=== PATIENT | female | born 1955 | race Caucasian/White ===

== ENCOUNTER 2020-10-09 11:25 | Observation (INO) | payer MEDICARE ==
[2020-10-09 12:01] LABS: ABSOLUTE EOSINOPHILS # (AUTO) 0.3 10^3/uL (0.0-0.6); ABSOLUTE MONOCYTES (AUTO) 0.8 10^3/uL (0.1-1.4); BASOPHILS % (AUTO) 0.4 % (0-2); EOSINOPHILS % (AUTO) 3.3 % (0-6); HEMATOCRIT 39.7 % (36.0-47.0); HEMOGLOBIN 13.6 g/dL (12.0-15.5); LYMPHOCYTES % (AUTO) 24.7 % (13-45); MEAN CORPUSCULAR HEMOGLOBIN 30.4 pg (27.0-33.4); MEAN CORPUSCULAR HGB CONC 34.1 g/dL (32.0-36.0); MEAN CORPUSCULAR VOLUME 89 fl (80-97); MONOCYTES % (AUTO) 9.8 % (3-13); PLATELET COUNT 164 10^3/uL (150-450); RED BLOOD COUNT 4.45 10^6/uL (3.72-5.28); RED CELL DISTRIBUTION WIDTH 14.1 % (11.5-14.0); SEGMENTED NEUTROPHILS % (AUTO) 61.8 % (42-78); TOTAL CELLS COUNTED % (AUTO) 100 %; WHITE BLOOD COUNT 8.1 10^3/uL (4.0-10.5)
[2020-10-09] MEDS ORDERED: METHYLPREDNISOLONE INJ 125 MG/2 ML SDV IV ONE (12:02)
--- NOTE | 2020-10-09 12:03 | ER Document Report ---
ED Cardiac - General Chief Complaint: Chest Pain Stated Complaint: CHEST PAIN SOB Time Seen by Provider: 10/09/20 11:33 Notes: Patient is a 65-year-old female with a history of a pacemaker, [place], hypertension who presents emergency department with a chief complaint of chest pain that started around 11:00 this morning. Patient states that her pain is a sharp, stabbing pain. She also states that it radiates down her left arm. Patient also states that she was short of breath for the past 2 days. Reports increased urination. - Related Data Allergies/Adverse Reactions: No Known Allergies Allergy (Verified 10/09/20 12:02) Past Medical History - General Information source: Patient - Social History Smoking Status: Current Every Day Smoker Family History: Reviewed & Not Pertinent Review of Systems - Review of Systems Notes: REVIEW OF SYSTEMS: CONSTITUTIONAL : Denies recent illness. Denies recent unintentional weight loss. Denies fever, chills, or sweats. EENT: Denies eye, ear, throat, or mouth pain, discharge, or symptoms. Denies nasal or sinus congestion. CARDIOVASCULAR: See HPI. RESPIRATORY: See HPI. GASTROINTESTINAL: Denies nausea, vomiting, and diarrhea. Denies abdominal pain. Denies constipation. GENITOURINARY: Denies difficulty urinating, burning, blood in urine, urgency or frequency. MUSCULOSKELETAL: Denies neck and back pain. Denies joint pain or swelling. SKIN: Denies rash, itchiness, or lesions HEMATOLOGIC : Denies easy bruising or bleeding. LYMPHATIC: Denies swollen, painful, enlarged glands. NEUROLOGICAL: Denies no numbness or tingling denies weakness. Denies headache. Denies altered mental status. Denies alteration in speech. PSYCHIATRIC: Denies stress, anxiety, alteration in sleep patterns, or depression. All other systems reviewed and negative. Physical Exam - Vital signs Vitals: Pulse Ox 97 10/09/20 11:32 - Notes Notes: PHYSICAL EXAMINATION: GENERAL: Appears well, healthy, well-nourished, no acute distress. HEAD: Normocephalic, atraumatic. EYES: PERRL, conjunctiva normal, all extraocular movements intact, sclera nonicteric ENT: Moist mucous membranes. NECK: Supple, no noticeable swelling, redness, rash. Normal range of motion. LUNGS: Expiratory wheezes noted throughout all lung lopez. CARDIOVASCULAR: S1-S2, regular rate, regular rhythm. Radial pulses 2+, normal. ABDOMEN: Normoactive bowel sounds. Soft, nontender, no guarding, no rebound tenderness, and no masses palpated. EXTREMITIES: Normal strength and range of motion, no pitting or edema. No cyanosis. NEUROLOGICAL: Moves all extremities upon command. Strength 5/5 in all extremities. PSYCH: Normal mood, normal affect. SKIN: Warm, dry. No rash, lesions, ulcerations noted. Normal skin turgor. Course - Re-evaluation Re-evalutation: 10/09/20 Hematology is unremarkable. Chemistries show potassium of 3.5. Calcium 7.8, but when corrected is normal. Initial troponin is indeterminate at 0.040. BNP is 11,800, consistent with a CHF exacerbation. Chest x-ray is normal. I called Dr. [address] and the patient will be admitted for observation on the telemetry unit. - Vital Signs Vital signs: Temp Pulse Resp BP Pulse Ox 98 F 29 H 186/66 H 96 10/09/20 11:54 10/09/20 16:13 10/09/20 17:01 10/09/20 17:01 - Laboratory Result Diagrams: 10/09/20 11:36 10/09/20 11:36 Laboratory results interpreted by me: 10/09/20 10/09/20 10/09/20 11:36 11:36 11:36 RDW 14.1 H Potassium 3.5 L BUN 6 L Creatinine 0.51 L Calcium 7.8 L NT-Pro-B Natriuret Pep 21776 H Total Protein 5.9 L Albumin 3.3 L - EKG Interpretation by Me Additional EKG results interpreted by me: 10/09/20 12:02 Ventricularly paced rhythm with a rate of 74. KS 124 QRS 152; QT 460; QTc 511. Discharge - Discharge Clinical Impression: Chest pain Qualifiers: Chest pain type: unspecified Qualified Code(s): R07.9 - Chest pain, unspecified Condition: Stable Disposition: ADMITTED OBSERVATION Admitting Provider: Maximiliano (Hospitalist) Unit Admitted: Telemetry
[2020-10-09 12:15] LABS: ALBUMIN 3.3 g/dL (3.5-5.0); ALKALINE PHOSPHATASE 86 U/L (38-126); ANION GAP 6 (5-19); ASPARTATE AMINO TRANSFERASE 22 U/L (14-36); BILIRUBIN,DIRECT 0.1 mg/dL (0.0-0.4); BILIRUBIN,TOTAL 0.8 mg/dL (0.2-1.3); BLOOD UREA NITROGEN 6 mg/dL (7-20); CALCIUM 7.8 mg/dL (8.4-10.2); CARBON DIOXIDE 28 mmol/L (22-30); CHLORIDE 105 mmol/L (98-107); CREATINE KINASE 100 U/L (30-135); GLUCOSE 87 mg/dL (75-110); POTASSIUM 3.5 mmol/L (3.6-5.0); TOTAL PROTEIN 5.9 g/dL (6.3-8.2)
--- NOTE | 2020-10-09 12:19 | RADIOLOGY REPORT (SQ) ---
EXAM DESCRIPTION: CHEST SINGLE VIEW IMAGES COMPLETED DATE/TIME: 10/09/2020 12:04 pm REASON FOR STUDY: cp COMPARISON: None. EXAM PARAMETERS: NUMBER OF VIEWS: One view. TECHNIQUE: Single frontal radiographic view of the chest acquired. RADIATION DOSE: NA LIMITATIONS: None. FINDINGS: LUNGS AND PLEURA: No opacities, masses or pneumothorax. No pleural effusion. MEDIASTINUM AND HILAR STRUCTURES: No masses. Contour normal. HEART AND VASCULAR STRUCTURES: Heart normal in size. Normal vasculature. BONES: No acute findings. HARDWARE: Pacemaker/defibrillator. OTHER: No other significant finding. IMPRESSION: NO ACUTE RADIOGRAPHIC FINDING IN THE CHEST. TECHNICAL DOCUMENTATION: JOB ID: [id number] 2010 [employer]- All Rights Reserved Reading location - IP/workstation name: [email or web address]
[2020-10-09 12:27] LABS: CREATINE KINASE MB 3.29 ng/mL (<4.55)
[2020-10-09 12:37] LABS: TROPONIN I 0.04 ng/mL
[2020-10-09] MEDS ORDERED: NITROGLYCERIN 0.4 MG/TAB 25 TAB/BOTTLE SL PRN (16:18)
[2020-10-09] MEDS ORDERED: ACETAMINOPHEN 325 MG TABLET PO PRN (16:18)
[2020-10-09] MEDS ORDERED: ONDANSETRON HCL INJ/PF 4 MG/2 ML SDV IV PRN (16:18)
[2020-10-09] MEDS ORDERED: MAG HYDROX/AL HYDROX/SIMETH SUSP 30 ML UDCUP PO PRN (16:18)
--- NOTE | 2020-10-09 16:39 | PDOC H&P ---
History of Present Illness Admission Date/PCP: 10/09/20 16:30 Patient complains of: chest pain, sob, left arm pain History of Present Illness: BRADLY MATHEW is a 65 year old female with history of COPD, CHF s/p ICD, IA s/p PCI with stents 5years ago, hypertension, who presents to the hospital with complaints of shortness of breath for the past 3 days as well as chest pain which started today. Regarding patient's shortness of breath, she describes this as progressive associated with orthopnea which has been a little more chronic. She denies any PND. Denies any fever chills and she is not having any much coughing. Her chest pain just started today and she describes it as a left-sided sharp chest pain which will cause for several seconds not up to a mi nute. Associated with pain in the upper left arm. No clear exacerbating or alleviating factors. States that the pain does not feel like it is the muscle was feels like it is coming from within. Denies any heavy lifting or physical activity involving that arm. 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 She has not had a stress test or left heart cath in the past few years. She states her stenting was done up at [place]. In the ER, patient was given steroids after being noted to be wheezing. SPO2 is adequate. Hospitalist service consulted for chest pain rule out as well as concern for COPD and CHF. Past Medical History Cardiac Medical History: Reports: Congestive Heart Failure, Myocardial Infarction, Hyperlipidema, Hypertension Pulmonary Medical History: Reports: Chronic Obstructive Pulmonary Disease (COPD) Past Surgical History Past Surgical History: Reports: Cardiac Catheterization Social History Smoking Status: Current Every Day Smoker Frequency of Alcohol Use: Rare Hx Recreational Drug Use: No - Advance Directive Resuscitation Status: Full Code Family History Family History: Hypertension, Other - Heart disease Parental Family History Reviewed: Yes Children Family History Reviewed: Yes Sibling(s) Family History Reviewed.: Yes Medication/Allergy Allergies/Adverse Reactions: No Known Allergies Allergy (Verified 10/09/20 12:02) Review of Systems Constitutional: ABSENT: fatigue, fever(s) Eyes: ABSENT: visual disturbances Ears: ABSENT: hearing changes Nose, Mouth, and Throat: ABSENT: headache(s) Cardiovascular: PRESENT: chest pain, orthropnea Respiratory: PRESENT: dyspnea. ABSENT: sputum Gastrointestinal: ABSENT: abdominal pain, nausea, vomiting Genitourinary: ABSENT: dysuria Musculoskeletal: PRESENT: other - left arm pain. ABSENT: back pain, joint swelling Neurological: ABSENT: confusion, convulsions, dizziness Psychiatric: ABSENT: anxiety Endocrine: PRESENT: polyuria - Occasionally Hematologic/Lymphatic: ABSENT: easy bleeding Allergic/Immunologic: ABSENT: seasonal rhinorrhea Physical Exam Vital Signs: Temp Pulse Resp BP Pulse Ox 98 F 29 H 133/86 H 95 10/09/20 11:54 10/09/20 16:13 10/09/20 16:14 10/09/20 16:00 Intake & Output 10/08/20 10/09/20 10/10/20 06:59 06:59 06:59 Weight 64.864 kg General appearance: PRESENT: no acute distress, cooperative Mouth exam: PRESENT: neck supple Neck exam: ABSENT: JVD Respiratory exam: PRESENT: crackles - Very minimal crackles in patient's right lower lung field., symmetrical, unlabored, wheezes - Prominent and expiratory wheezing bilateral. ABSENT: accessory muscle use, tachypnea Cardiovascular exam: PRESENT: RRR, +S1, +S2. ABSENT: tachycardia GI/Abdominal exam: PRESENT: soft. ABSENT: distended, rebound, rigid, tenderness Extremities exam: ABSENT: pedal edema Musculoskeletal exam: PRESENT: ambulatory, tenderness - Tenderness on palpation over the left upper arm also tender in the left shoulder. However patient states he feels like a different type pain. Pain elicited on arm extension. Neurological exam: PRESENT: alert, awake, oriented to person, oriented to place, oriented to time, oriented to situation Psychiatric exam: ABSENT: agitated, anxious Focused psych exam: ABSENT: pressured speech Skin exam: PRESENT: rash - Left lower extremity Results Laboratory Results: 10/09/20 11:36 10/09/20 11:36 10/09/20 10/09/20 11:36 11:36 WBC 8.1 RBC 4.45 Hgb 13.6 Hct 39.7 MCV 89 MCH 30.4 MCHC 34.1 RDW 14.1 H Plt Count 164 Seg Neutrophils % 61.8 Sodium 139.1 Potassium 3.5 L Chloride 105 Carbon Dioxide 28 Anion Gap 6 BUN 6 L Creatinine 0.51 L Est GFR ( Amer) > 60 Glucose 87 Calcium 7.8 L Total Bilirubin 0.8 AST 22 Alkaline Phosphatase 86 Total Protein 5.9 L Albumin 3.3 L 10/09/20 10/09/20 10/09/20 11:36 11:36 11:36 Creatine Kinase 100 CK-MB (CK-2) 3.29 Troponin I 0.040 NT-Pro-B Natriuret Pep 36645 H 10/09/20 14:45 Creatine Kinase CK-MB (CK-2) Troponin I 0.035 NT-Pro-B Natriuret Pep Impressions: Chest X-Ray 10/09/20 11:33 IMPRESSION: NO ACUTE RADIOGRAPHIC FINDING IN THE CHEST. Assessment and Plan - Diagnosis (1) Chest pain Qualifiers: Chest pain type: unspecified Qualified Code(s): R07.9 - Chest pain, unspecified Is this a current diagnosis for this admission?: Yes Plan: Her chest pain is very atypical for CAD lasting just seconds. However she does have confirmed history of CAD with stents and has lost follow-up with her blacksmith supervisor. She did also states that nitro helped with the chest pain earlier on today. Troponin is mildly elevated at 0.04--0.035 We will get another troponin level later today. EKG shows V paced rhythm Monitor on telemetry Cardiology consulted (2) COPD exacerbation Is this a current diagnosis for this admission?: Yes Plan: Notable x-ray wheezing bilaterally on exam. Treat with albuterol nebulizer every 6 hours, steroids, budesonide nebs. Chest x-ray shows no evidence of pneumonia (3) Left upper arm pain Is this a current diagnosis for this admission?: Yes Plan: We will try some Lidoderm. Possibly could be musculoskeletal. We will also rule out any blood clot with a left upper extremity Doppler. (4) Chronic CHF Qualifiers: Heart failure type: unspecified Qualified Code(s): I50.9 - Heart failure, unspecified Is this a current diagnosis for this admission?: Yes Plan: She has chronic orthopnea and BNP elevation of 11,000. Chest x-ray actually does not show any pulmonary edema increased vascular congestion. She takes Lasix 40 mg daily at home. I will try giving her some IV 60 mg Lasix and see if that helps improve her breathing. Strict I's and O's. 1500 cc fluid restriction. EF is unknown but patient does have an ICD which makes me suspect systolic heart failure. Will check echo. May need to be converted to Toprol-XL if determined to be systolic CHF. (5) Hypertension Is this a current diagnosis for this admission?: Yes Plan: Hypertensive urgency. Systolic BP 186 though was much better on initial vitals. Continue patient's Imdur, lisinopril and amlodipine. (6) CAD (coronary artery disease) Qualifiers: Coronary Disease-Associated Artery/Lesion type: [place] artery [place] vs. transplanted heart: [place] heart Associated angina: angina presence unspecified Qualified Code(s): I25.10 - Atherosclerotic heart disease of [place] coronary artery without angina pectoris Is this a current diagnosis for this admission?: Yes Plan: Continue baby aspirin and beta-fermín. Should be on a statin. (7) Advance care planning Is this a current diagnosis for this admission?: Yes Plan: Discussed patient's CODE STATUS with her and family member who was at bedside. Patient wants to be full code. Patient also okay with intubation in the absence of cardiac arrest. Patient is okay with cardioversion/defibrillation as deemed necessary for arrhythmias. Patient wants full treatment and open to all interventions. 18 minutes spent on this conversation - Time Time Spent with patient: 35 or more minutes Anticipated Discharge Disposition: Home, Self Care Anticipated Discharge Timeframe: within 36 hours
[2020-10-09] MEDS ORDERED: NICOTINE 14 MG/24 HR PATCH.TD24 TD PRN (17:00)
[2020-10-09] MEDS ORDERED: POTASSIUM CHLORIDE 10 MEQ TABLET.ER PO ONE (17:00)
[2020-10-09] MEDS ORDERED: FUROSEMIDE INJ/PF 40 MG/4 ML SDV IV ONE (17:00)
[2020-10-09] MEDS ORDERED: LIDOCAINE 5% (700 MG) TRANSDERMAL ADH..PATCH TP ONE (17:30)
[2020-10-09] MEDS ORDERED: ISOSORBIDE MONONITRATE 30 MG TAB.ER.24H PO ONE (18:30)
[2020-10-09] MEDS ORDERED: LISINOPRIL 10 MG TABLET PO ONE (18:30)
[2020-10-09] MEDS: MELOXICAM 7.5 MG TABLET PO SCH (18:36)
--- NOTE | 2020-10-09 19:01 | EKG REPORT ---
SEVERITY:- ABNORMAL ECG - ATRIAL-SENSED VENTRICULAR-PACED COMPLEXES PROBABLE LEFT ATRIAL ABNORMALITY LEFT BUNDLE BRANCH BLOCK : Confirmed by: Sonja Drew MD 09-Oct-2020 19:00:21
[2020-10-09] MEDS: BUDESONIDE NEB 0.25 MG/2 ML AMPUL NEB SCH (20:19)
[2020-10-09] MEDS: ALBUTEROL SULFATE 0.083% NEB 2.5 MG/3 ML AMPUL NEB SCH (20:19)
--- NOTE | 2020-10-09 20:43 | RADIOLOGY REPORT (SQ) ---
US UPPER EXTREMITY VEINS HISTORY: Arm pain and swelling. COMPARISON: None. TECHNIQUE: Grayscale, color Doppler, and spectral Doppler images of the left upper extremity were performed. FINDINGS: The internal jugular, subclavian, axillary, brachial, basilic, and cephalic veins are patent and compressible. Normal color Doppler blood flow and augmentation in the aforementioned veins. The distal veins are also patent. IMPRESSION: No DVT in the left upper extremity.
[2020-10-09] MEDS: METOPROLOL TARTRATE 25 MG TABLET PO SCH (22:56)
[2020-10-10] MEDS: ALBUTEROL SULFATE 0.083% NEB 2.5 MG/3 ML AMPUL NEB SCH ×3 (03:00→13:34)
[2020-10-10 06:02] LABS: ANION GAP 10 (5-19); BLOOD UREA NITROGEN 15 mg/dL (7-20); CALCIUM 9.4 mg/dL (8.4-10.2); CARBON DIOXIDE 26 mmol/L (22-30); CHLORIDE 102 mmol/L (98-107); GLUCOSE 155 mg/dL (75-110)
[2020-10-10 06:04] LABS: POTASSIUM 4.7 mmol/L (3.6-5.0)
--- NOTE | 2020-10-10 07:49 | PDOC CONSULTATION ---
Consultation Consult Date: 10/10/20 Attending physician:: SHA DUBOSE Provider Consulted: PAOLA SANTANA Consult reason:: Chest pain History of Present Illness Admission Date/PCP: 10/09/20 16:30 History of Present Illness: BRADLY MATHEW is a 65 year old female with history of coronary artery disease status post 6 myocardial infarctions per her report, status post PCI at [facility] approximately 5 years ago, heart failure with reduced ejection fraction status post ICD/pacemaker implantation, hypertension, hyperlipidemia, COPD, currently smoking who is consulted to our service for evaluation of chest pain. The patient states that she had been having increased shortness of breath several days prior to developing chest pain yesterday between 1000 and 1100. She describes the pain as very sharp, localized to the left side of the chest, lasting just for a few seconds at a time, with spontaneous resolution, with several recurrences throughout the day, with radiation to the left shoulder, nonpleuritic, nonreproducible and not associated with palpitations, syncope or presyncope. The patient also denies PND, orthopnea and lower extremity edema. She states that during her heart failure exacerbations she does not develop lower extremity pitting edema but generalized swelling particularly of the hands. Her telemetry shows sinus rhythm with ventricular pacing. Unfortunately I do not have any her old cardiovascular records. Of note, upon presentation to the emergency room her systolic pressure was very elevated at 183 mmHg. Physical exam on 10/10/2020: GENERAL: Pleasant and conversational. Oriented x3 with normal mood. Not in acute distress. Well groomed and well developed. HEENT: Normocephalic, atraumatic. Pupils equal. Sclerae anicteric. Oropharynx moist. NECK: No JVD. No carotid bruits. LUNGS: Diffuse, severe, inspiratory and expiratory wheezing bilaterally. Normal respiratory effort without the use of accessory muscles or intercostal retractions. CARDIOVASCULAR: Regular rate and rhythm, normal S1 and S2 without murmurs, rubs, or gallops. PMI not displaced. ABDOMEN: No masses or tenderness to palpation. No bruit. No splenomegaly or hepatomegaly. No abdominal aorta bruit noted. EXTREMITIES: No edema, no cyanosis, no clubbing. +2 pulses femoral and pedal pulses bilaterally. SKIN: No lesions or rashes. MUSCULOSKELETAL: No chest tenderness to palpation. NEUROLOGIC: Nonfocal. No gross sensory or motor deficits bilateral upper or lower extremities. Past Medical History Cardiac Medical History: Reports: Congestive Heart Failure, Myocardial Infarction, Hyperlipidema, Hypertension Pulmonary Medical History: Reports: Chronic Obstructive Pulmonary Disease (COPD) Psychiatric Medical History: Denies: Depression Past Surgical History Past Surgical History: Reports: Cardiac Catheterization Social History Smoking Status: Current Every Day Smoker Frequency of Alcohol Use: Rare Hx Recreational Drug Use: No - Advance Directive Resuscitation Status: Full Code Family History Family History: Reviewed & Not Pertinent Parental Family History Reviewed: Yes Children Family History Reviewed: Yes Sibling(s) Family History Reviewed.: Yes Medication/Allergy Allergies/Adverse Reactions: No Known Allergies Allergy (Verified 10/09/20 12:02) Physical Exam Vital Signs: Temp Pulse Resp BP Pulse Ox 97.7 F 75 18 113/53 L 95 10/10/20 04:00 10/10/20 04:00 10/10/20 04:00 10/10/20 04:00 10/10/20 04:00 Intake & Output 10/08/20 10/09/20 10/10/20 06:59 06:59 06:59 Intake Total 200 Balance 200 Weight 63.1 kg Results Laboratory Results: 10/09/20 11:36 10/10/20 04:40 10/09/20 10/09/20 10/10/20 11:36 11:36 04:40 WBC 8.1 RBC 4.45 Hgb 13.6 Hct 39.7 MCV 89 MCH 30.4 MCHC 34.1 RDW 14.1 H Plt Count 164 Seg Neutrophils % 61.8 Sodium 139.1 137.9 Potassium 3.5 L 4.7 D Chloride 105 102 Carbon Dioxide 28 26 Anion Gap 6 10 BUN 6 L 15 Creatinine 0.51 L 0.87 Est GFR ( Amer) > 60 > 60 Glucose 87 155 H Calcium 7.8 L 9.4 Magnesium 2.1 Total Bilirubin 0.8 AST 22 Alkaline Phosphatase 86 Total Protein 5.9 L Albumin 3.3 L 10/09/20 10/09/20 10/09/20 11:36 11:36 11:36 Creatine Kinase 100 CK-MB (CK-2) 3.29 Troponin I 0.040 NT-Pro-B Natriuret Pep [id number] H 10/09/20 10/09/20 14:45 21:16 Creatine Kinase CK-MB (CK-2) Troponin I 0.035 0.021 NT-Pro-B Natriuret Pep Impressions: Venous Doppler Study 10/09/20 00:00 IMPRESSION: No DVT in the left upper extremity. Chest X-Ray 10/09/20 11:33 IMPRESSION: NO ACUTE RADIOGRAPHIC FINDING IN THE CHEST. 10/09/20 11:36 10/10/20 04:40 MCV 89 fl (80-97) 10/09/20 11:36 MCH 30.4 pg (27.0-33.4) 10/09/20 11:36 MCHC 34.1 g/dL (32.0-36.0) 10/09/20 11:36 RDW 14.1 % (11.5-14.0) H 10/09/20 11:36 Seg Neutrophils % 61.8 % (42-78) 10/09/20 11:36 Chloride 102 mmol/L (98-107) 10/10/20 04:40 Carbon Dioxide 26 mmol/L (22-30) 10/10/20 04:40 Anion Gap 10 (5-19) 10/10/20 04:40 Est GFR ( Amer) > 60 (>60) 10/10/20 04:40 Glucose 155 mg/dL (75-110) H 10/10/20 04:40 Calcium 9.4 mg/dL (8.4-10.2) 10/10/20 04:40 Magnesium 2.1 mg/dL (1.6-2.3) 10/10/20 04:40 Total Bilirubin 0.8 mg/dL (0.2-1.3) 10/09/20 11:36 AST 22 U/L (14-36) 10/09/20 11:36 Alkaline Phosphatase 86 U/L (38-126) 10/09/20 11:36 Total Protein 5.9 g/dL (6.3-8.2) L 10/09/20 11:36 Albumin 3.3 g/dL (3.5-5.0) L 10/09/20 11:36 10/09/20 10/09/20 10/09/20 11:36 11:36 11:36 Creatine Kinase 100 CK-MB (CK-2) 3.29 Troponin I 0.040 NT-Pro-B Natriuret Pep [id number] H 10/09/20 10/09/20 14:45 21:16 Creatine Kinase CK-MB (CK-2) Troponin I 0.035 0.021 NT-Pro-B Natriuret Pep Current Medication List Generic Name Dose Route Start Last Admin Trade Name Freq PRN Reason Stop Dose Admin Acetaminophen 975 mg 10/09/20 16:18 10/10/20 05:12 Acetaminophen 325 Mg Tablet PO 11/08/20 16:17 975 mg Q6HP PRN Administration FOR PAIN Al Hydrox/Mg Hydrox/Simethicone 30 ml 10/09/20 16:18 Mag Hydrox/Al Hydrox/Simeth Susp 30 Ml Udcup PO 11/08/20 16:17 Q4HP PRN HEARTBURN Albuterol 2.5 mg 10/09/20 20:00 10/10/20 03:00 Albuterol Sulfate 0.083% Neb 2.5 Mg/3 Ml Ampul NEB 11/08/20 19:59 2.5 mg RTQ6 MARLIN Administration Amlodipine Besylate 5 mg 10/10/20 10:00 Amlodipine Besylate 5 Mg Tablet PO 11/09/20 09:59 DAILY AMRLIN Aspirin 81 mg 10/10/20 10:00 Aspirin 81 Mg Tablet, Ent Coated PO 11/09/20 09:59 DAILY MARLIN Budesonide 0.25 mg 10/09/20 20:00 10/09/20 20:19 Budesonide Neb 0.25 Mg/2 Ml Ampul NEB 11/08/20 19:59 0.25 mg RTQ12 MARLIN Administration Enoxaparin Sodium 40 mg 10/10/20 10:00 Enoxaparin Sodium Inj 40 Mg/0.4 Ml Disp.Syrin SUBCUT 11/09/20 09:59 DAILY MARLIN Furosemide 60 mg 10/10/20 10:00 Furosemide Inj/Pf 40 Mg/4 Ml Sdv IV 11/09/20 09:59 DAILY MARLIN Isosorbide Mononitrate 30 mg 10/10/20 10:00 Isosorbide Mononitrate 30 Mg Tab.Er.24h PO 11/09/20 09:59 DAILY MARLIN Lidocaine 1 patch 10/10/20 10:00 Lidocaine 5% (700 Mg) Transdermal Adh..Patch TP 11/09/20 09:59 DAILY MARLIN Lisinopril 40 mg 10/10/20 10:00 Lisinopril 10 Mg Tablet PO 11/09/20 09:59 DAILY MARLIN Meloxicam 7.5 mg 10/09/20 18:00 10/09/20 18:36 Meloxicam 7.5 Mg Tablet PO 11/08/20 17:59 7.5 mg BIDPCBS MARLIN Administration Metoprolol Tartrate 12.5 mg 10/09/20 22:00 10/09/20 22:56 Metoprolol Tartrate 25 Mg Tablet PO 11/08/20 21:59 12.5 mg Q12 MARLIN Administration Nicotine 1 each 10/09/20 17:00 Nicotine 14 Mg/24 Hr Patch.Td24 TD 11/08/20 16:59 DAILYP PRN WITHDRAWAL SYMPTOMS Nitroglycerin 1 tab 10/09/20 16:18 Nitroglycerin 0.4 Mg/Tab 25 Tab/Bottle SL 11/08/20 16:17 Q5MP PRN FOR CHEST PAIN Ondansetron HCl 4 mg 10/09/20 16:18 Ondansetron Hcl Inj/Pf 4 Mg/2 Ml Sdv IV 11/08/20 16:17 Q6HP PRN FOR NAUSEA/VOMITING Potassium Chloride 20 meq 10/10/20 10:00 Potassium Chloride 10 Meq Tablet.Er PO 11/09/20 09:59 DAILY MARLIN Prednisone 40 mg 10/10/20 10:00 Prednisone 20 Mg Tablet PO 11/09/20 09:59 DAILY MARLIN Sodium Chloride 2.5 ml 10/09/20 22:00 10/10/20 05:12 Normal Saline Flush 2.5 Ml Disp.Syrin IV 11/08/20 21:59 2.5 ml Q8 MARLIN Administration Discontinued Medications Generic Name Dose Route Start Last Admin Trade Name Freq PRN Reason Stop Dose Admin Furosemide 60 mg 10/09/20 17:00 10/09/20 16:53 Furosemide Inj/Pf 40 Mg/4 Ml Sdv IV 10/09/20 17:01 60 mg NOW ONE Administration Isosorbide Mononitrate 30 mg 10/09/20 18:30 10/09/20 18:36 Isosorbide Mononitrate 30 Mg Tab.Er.24h PO 10/09/20 18:31 30 mg NOW ONE Administration Lidocaine 1 patch 10/09/20 17:30 10/09/20 16:54 Lidocaine 5% (700 Mg) Transdermal Adh..Patch TP 11/19/20 17:31 1 patch NOW ONE Administration Lisinopril 40 mg 10/09/20 18:30 10/09/20 18:35 Lisinopril 10 Mg Tablet PO 10/09/20 18:31 40 mg NOW ONE Administration Methylprednisolone Sodium Succinate 125 mg 10/09/20 12:02 10/09/20 12:34 Methylprednisolone Inj 125 Mg/2 Ml Sdv IV 10/09/20 12:03 125 mg NOW ONE Administration Potassium Chloride 40 meq 10/09/20 17:00 10/09/20 16:53 Potassium Chloride 10 Meq Tablet.Er PO 10/09/20 17:01 40 meq NOW ONE Administration Assessment & Plan - Diagnosis (1) Chest pain Qualifiers: Chest pain type: unspecified Qualified Code(s): R07.9 - Chest pain, unspecified Is this a current diagnosis for this admission?: Yes Plan: The patient's chest pain is very atypical and lasting just a few seconds at a time. Her cardiac troponins, although detectable, are in the indeterminate range and now downtrending. Unfortunately her EKG is uninterpretable for isc hemia given her ventricular pacing. She is hemodynamically stable and without recurrence of her index chest pain, she only complains of left shoulder pain that has been essentially present most of the time. Even though the patient has a significant ischemic heart disease history I do not believe her chest pain is related to an acute ischemic event but may be secondary to her COPD exacerbation. Recommendations: -Continue with current medical management. -Obtain echocardiogram. -Obtain old cardiovascular records from [facility]. -We will continue to follow with you. (2) CAD (coronary artery disease) Qualifiers: Coronary Disease-Associated Artery/Lesion type: jamul artery [place] vs. transplanted heart: jamul heart Associated angina: angina presence unspecified Qualified Code(s): I25.10 - Atherosclerotic heart disease of jamul coronary artery without angina pectoris Is this a current diagnosis for this admission?: Yes Plan: Please see #1 above for recommendations. (3) Chronic CHF Qualifiers: Heart failure type: unspecified Qualified Code(s): I50.9 - Heart failure, unspecified Is this a current diagnosis for this admission?: Yes Plan: The patient states that she had an ICD placed at [facility], she is paced essentially 100% of the time. I suspect she has heart failure with reduced ejection fraction. Despite her elevated BNP, she has no clinical evidence of heart failure exacerbation although she is convinced she is fluid overloaded. Her elevated BNP may be a chronic issue but unfortunately I do not have prior lab results to compare. Recommendations: -Echocardiogram today. -Continue with current medical management. -Restrict fluid intake to 1500 cc daily. -Low sodium diet, less than 1500 mg daily. -Strict intake and output. -Daily weights. -Daily BMP, magnesium and replace electrolytes as necessary. (4) Hypertension Is this a current diagnosis for this admission?: Yes Plan: The patient initially presented with a very elevated systolic pressure around 183 mmHg. It is now well controlled. Recommendations: -Continue with current medical management. (5) COPD exacerbation Is this a current diagnosis for this admission?: Yes Plan: The patient is definitely having a COPD exacerbation with both inspiratory and expiratory wheezing in all pulmonary lopez. I will defer further management to her hospitalist team.
[2020-10-10] MEDS: BUDESONIDE NEB 0.25 MG/2 ML AMPUL NEB SCH (08:20)
[2020-10-10] MEDS ORDERED: ASPIRIN 81 MG TABLET, ENT COATED PO SCH (10:00)
[2020-10-10] MEDS ORDERED: ENOXAPARIN SODIUM INJ 40 MG/0.4 ML DISP.SYRIN SUBCUT SCH (10:00)
[2020-10-10] MEDS ORDERED: POTASSIUM CHLORIDE 10 MEQ TABLET.ER PO SCH (10:00)
[2020-10-10] MEDS ORDERED: LISINOPRIL 10 MG TABLET PO SCH (10:00)
[2020-10-10] MEDS ORDERED: AMLODIPINE BESYLATE 5 MG TABLET PO SCH (10:00)
[2020-10-10] MEDS ORDERED: FUROSEMIDE INJ/PF 40 MG/4 ML SDV IV SCH (10:00)
[2020-10-10] MEDS ORDERED: PREDNISONE 20 MG TABLET PO SCH (10:00)
[2020-10-10] MEDS ORDERED: ISOSORBIDE MONONITRATE 30 MG TAB.ER.24H PO SCH (10:00)
[2020-10-10] MEDS ORDERED: LIDOCAINE 5% (700 MG) TRANSDERMAL ADH..PATCH TP SCH (10:00)
[2020-10-10] MEDS ORDERED: DIPHENHYDRAMINE HCL 50 MG/ML VIAL IV ONE (11:00)
[2020-10-10] MEDS ORDERED: METOCLOPRAMIDE HCL INJ/PF 10 MG/2 ML SDV IV ONE (11:00)
[2020-10-10] MEDS ORDERED: KETOROLAC TROMETHAMINE INJ/PF 30 MG/1 ML SDV IV ONE (11:00)
[2020-10-10] MEDS: METOPROLOL TARTRATE 25 MG TABLET PO SCH (11:12)
[2020-10-10 11:14] LABS: FREE T3 3.09 pg/mL (2.77-5.27); FREE T4 (FREE THYROXINE) 0.96 ng/dL (0.78-2.19)
--- NOTE | 2020-10-10 12:38 | RADIOLOGY REPORT (SQ) ---
EXAM DESCRIPTION: SHOULDER LEFT 2 OR MORE VIEWS IMAGES COMPLETED DATE/TIME: 10/10/2020 12:30 pm REASON FOR STUDY: left shoulder pain possible arthritis I50.23 ACUTE ON CHRONIC SYSTOLIC (CONGESTIV E) HEART FAILURE E03.9 HYPOTHYROIDISM, UNSPECIFIED COMPARISON: None. NUMBER OF VIEWS: Three view. TECHNIQUE: Internal rotation, external rotation, and Y view images acquired of the left shoulder. LIMITATIONS: None. FINDINGS: MINERALIZATION: Normal. BONES: No acute fracture. No worrisome bone lesions. No significant osteophytes. GLENOHUMERAL JOINT: Osteophytic spurring along the inferior margin of the humeral head. ACROMIOCLAVICULAR JOINT: No large osteophytes. SOFT TISSUES: No calcifications. VISUALIZED RIBS, SPINE, AND LUNG: No other significant finding. OTHER: Battery pack and leads are in place. IMPRESSION: Mild degenerative changes. No acute findings. TECHNICAL DOCUMENTATION: JOB ID: [id number] 2010 [email or web address]- All Rights Reserved Reading location - IP/workstation name: [email or web address]
--- NOTE | 2020-10-10 13:27 | EKG REPORT ---
SEVERITY:- ABNORMAL ECG - ATRIAL-SENSED VENTRICULAR-PACED RHYTHM : Confirmed by: Sonja Drew MD 10-Oct-2020 13:26:27
[2020-10-10] MEDS: MELOXICAM 7.5 MG TABLET PO SCH (13:59)
[2020-10-10 16:46] VITALS: BP 102/48
--- NOTE | 2020-10-10 17:29 | PDOC DISCHARGE SUMMARY ---
Impression - Admit/DC Date/PCP Admission Date/Primary Care Provider: 10/09/20 16:30 Discharge Date: 10/10/20 - Discharge Diagnosis (1) Chest pain Is this a current diagnosis for this admission?: Yes (2) COPD exacerbation Is this a current diagnosis for this admission?: Yes (3) Chronic systolic (congestive) heart failure Is this a current diagnosis for this admission?: Yes (4) Left upper arm pain Is this a current diagnosis for this admission?: Yes (5) Hypertension Is this a current diagnosis for this admission?: Yes (6) CAD (coronary artery disease) Is this a current diagnosis for this admission?: Yes - Additional Information Resuscitation Status: Full Code Discharge Diet: Cardiac Discharge Activity: Activity As Tolerated, Balance Activity w/Rest, Weigh Daily Referrals: [facility] [Provider Group] (WILL NEED A REFERRAL SENT TO OFFICE FROM PCP.) HALLIE WINN MD [ACTIVE STAFF] - 10/15/20 11:00 am Prescriptions: Spironolactone [Aldactone 25 mg Tablet] 25 mg PO DAILY #30 tablet Cyclobenzaprine HCl 5 mg PO TIDP PRN #20 tablet PRN Reason: Prednisone [Deltasone 20 mg Tablet] 40 mg PO DAILY 4 Days #8 tablet Lidocaine [Lidoderm 5% (700 mg) Transdermal Patch] 1 patch TP DAILYP PRN #14 adh..patch PRN Reason: Budesonide/Formoterol Fumarate [Symbicort HFA 160-4.5 mcg Inhaler 6 gm] 2 puff IH Q12 #1 inhaler Metoprolol Succinate [Toprol Xl 25 mg Tab.sr] 25 mg PO DAILY #30 tab.sr.24h Albuterol Sulfate [Ventolin 0.083% Neb 2.5 mg/3 mL Ampul] 2.5 mg NEB Q6HP PRN #30 vial.neb PRN Reason: Home Medications: Acetaminophen [Tylenol 325 mg Tablet] 975 mg PO Q6HP PRN tablet 10/10/20 Albuterol Sulfate [Proair HFA Inhalation Aerosol 8.5 gm MDI] 2 puff IH Q4HP PRN 10/10/20 Albuterol Sulfate [Ventolin 0.083% Neb 2.5 mg/3 mL Ampul] 2.5 mg NEB Q6HP PRN #30 vial.neb 11/20/20 Amlodipine Besylate [Norvasc 5 mg Tablet] 5 mg PO DAILY 10/10/20 Budesonide/Formoterol Fumarate [Symbicort HFA 160-4.5 mcg Inhaler 6 gm] 2 puff IH Q12 #1 inhaler 10/10/20 Cyclobenzaprine HCl 5 mg PO TIDP PRN #20 tablet 10/10/20 Duloxetine HCl [Cymbalta] 60 mg PO DAILY 10/10/20 Folic Acid [Folvite 1 mg Tablet] 1 mg PO DAILY 10/10/20 Furosemide [Lasix 40 mg Tablet] 40 mg PO QAM 10/10/20 Hydroxyzine Hcl 50mg 50 mg PO TIDP PRN 10/10/20 Ipratropium/Albuterol Sulfate [Duoneb 3 ml Ampul] 3 ml NEB RTQ4HP PRN 10/10/20 Isosorbide Mononitrate [Imdur 30 mg Tablet.er] 30 mg PO DAILY 10/10/20 Lidocaine [Lidoderm 5% (700 mg) Transdermal Patch] 1 patch TP DAILYP PRN #14 adh..patch 10/10/20 Lisinopril [Zestril] 40 mg PO DAILY 10/10/20 Metoprolol Succinate [Toprol Xl 25 mg Tab.sr] 25 mg PO DAILY #30 tab.sr.24h 10/10/20 Nitroglycerin [Nitrostat 0.4 mg (1/150 Gr) Tabs 25/Bottle] 1 tab SL Q5MP PRN 10/10/20 Potassium Chloride [K-Tab ER] 20 meq PO DAILY 10/10/20 Prednisone [Deltasone 20 mg Tablet] 40 mg PO DAILY 4 Days #8 tablet 10/10/20 Spironolactone [Aldactone 25 mg Tablet] 25 mg PO DAILY #30 tablet 10/10/20 History of Present Illiness History of Present Illness: BRADLY MATHEW is a 65 year old female with history of COPD, CHF s/p ICD, [place] s/p PCI with stents 5years ago, hypertension, who presents to the hospital with complaints of shortness of breath for the past 3 days as well as chest pain which started today. Regarding patient's shortness of breath, she describes this as progressive associated with orthopnea which has been a little more chronic. She denies any PND. Denies any fever chills and she is not having any much coughing. Her chest pain just started today and she describes it as a left-sided sharp chest pain which will cause for several seconds not up to a minute. Associated with pain in the upper left arm. No clear exacerbating or alleviating factors. States that the pain does not feel like it is the muscle was feels like it is coming from within. Denies any heavy lifting or physical activity involving that arm. She was following with a clinical writer up in [facility] but has not seen any clinical writer in the past few years. She has not had a stress test or left heart cath in the past few years. She states her stenting was done up at [place]. In the ER, patient was given steroids after being noted to be wheezing. SPO2 is adequate. Hospitalist service consulted for chest pain rule out as well as concern for COPD and CHF. Hospital Course Hospital Course: Patient was brought in and started on treatment for COPD exacerbation. She was given nebulizer treatments and initiated on steroids. She had diffuse wheezing. Chest x-ray was negative for any airspace disease and was essentially clear. COPD morphology was noted. Patient however had a very elevated BNP of 11,000. On clinical exam patient did not examine as totally fluid overloaded but she did receive some IV Lasix yesterday and this morning. Wheezing is better today on exam after receiving breathing treatments. Regarding her chest pain, she is V paced so no significant ischemia could be picked up. Her troponin was essentially flat and trended down and the highest was 0.04. Chest pain does not sound quite anginal especially given that it only last a few seconds. Regarding his shoulder pain, she was examined with x-ray which showed arthritis. I did prescribe her muscle relaxant as well as some lidocaine patches. She was seen by cardiology today who deemed that her shortness of breath was mostly likely from COPD more so than CHF. Echocardiogram today confirms suspicion of systolic heart failure but preliminary result shows only an RVSP of about 19 which suggest against fluid overload. I will discharge patient on her regular dose of Lasix. I also switched her Lopressor to Toprol-XL and started her on a small dose of spironolactone. She has been set up to follow-up at [facility] cardiology for further care. Also getting her nebulizer machine. Physical Exam Vital Signs: Temp Pulse Resp BP Pulse Ox 98.0 F 94 18 102/48 L 96 10/10/20 16:12 10/10/20 16:12 10/10/20 16:12 10/10/20 16:12 10/10/20 16:12 Intake & Output 10/09/20 10/10/20 10/11/20 06:59 06:59 06:59 Intake Total 700 Balance 700 Weight 63.1 kg General appearance: PRESENT: no acute distress, cooperative Neck exam: ABSENT: JVD Respiratory exam: PRESENT: symmetrical, unlabored, wheezes - Mild. ABSENT: accessory muscle use, retraction, tachypnea Cardiovascular exam: PRESENT: RRR, +S1, +S2. ABSENT: gallop, tachycardia GI/Abdominal exam: PRESENT: soft. ABSENT: rebound, rigid, tenderness Neurological exam: PRESENT: alert, awake, oriented to person, oriented to place, oriented to time, oriented to situation Psychiatric exam: ABSENT: agitated Results Laboratory Results: WBC 8.1 10^3/uL (4.0-10.5) 10/09/20 11:36 RBC 4.45 10^6/uL (3.72-5.28) 10/09/20 11:36 Hgb 13.6 g/dL (12.0-15.5) 10/09/20 11:36 Hct 39.7 % (36.0-47.0) 10/09/20 11:36 MCV 89 fl (80-97) 10/09/20 11:36 MCH 30.4 pg (27.0-33.4) 10/09/20 11:36 MCHC 34.1 g/dL (32.0-36.0) 10/09/20 11:36 RDW 14.1 % (11.5-14.0) H 10/09/20 11:36 Plt Count 164 10^3/uL (150-450) 10/09/20 11:36 Lymph % (Auto) 24.7 % (13-45) 10/09/20 11:36 [place] % (Auto) 9.8 % (3-13) 10/09/20 11:36 Eos % (Auto) 3.3 % (0-6) 10/09/20 11:36 Baso % (Auto) 0.4 % (0-2) 10/09/20 11:36 Absolute Neuts (auto) 5.0 10^3/uL (1.7-8.2) 10/09/20 11:36 Absolute Lymphs (auto) 2.0 10^3/uL (0.5-4.7) 10/09/20 11:36 Absolute Monos (auto) 0.8 10^3/uL (0.1-1.4) 10/09/20 11:36 Absolute Eos (auto) 0.3 10^3/uL (0.0-0.6) 10/09/20 11:36 Absolute Basos (auto) 0.0 10^3/uL (0.0-0.2) 10/09/20 11:36 Seg Neutrophils % 61.8 % (42-78) 10/09/20 11:36 Sodium 137.9 mmol/L (137-145) 10/10/20 04:40 Potassium 4.7 mmol/L (3.6-5.0) D 10/10/20 04:40 Chloride 102 mmol/L (98-107) 10/10/20 04:40 Carbon Dioxide 26 mmol/L (22-30) 10/10/20 04:40 Anion Gap 10 (5-19) 10/10/20 04:40 BUN 15 mg/dL (7-20) 10/10/20 04:40 Creatinine 0.87 mg/dL (0.52-1.25) 10/10/20 04:40 Est GFR ( Amer) > 60 (>60) 10/10/20 04:40 Est GFR (MDRD) Non-Af > 60 (>60) 10/10/20 04:40 Glucose 155 mg/dL (75-110) H 10/10/20 04:40 Calcium 9.4 mg/dL (8.4-10.2) 10/10/20 04:40 Magnesium 2.1 mg/dL (1.6-2.3) 10/10/20 04:40 Total Bilirubin 0.8 mg/dL (0.2-1.3) 10/09/20 11:36 Direct Bilirubin 0.1 mg/dL (0.0-0.4) 10/09/20 11:36 Neonat Total Bilirubin Not Reportable 10/09/20 11:36 Neonat Direct Bilirubin Not Reportable 10/09/20 11:36 Neonat Indirect Bili Not Reportable 10/09/20 11:36 AST 22 U/L (14-36) 10/09/20 11:36 ALT 14 U/L (<35) 10/09/20 11:36 Alkaline Phosphatase 86 U/L (38-126) 10/09/20 11:36 Creatine Kinase 100 U/L (30-135) 10/09/20 11:36 CK-MB (CK-2) 3.29 ng/mL (<4.55) 10/09/20 11:36 Troponin I 0.021 ng/mL 10/09/20 21:16 NT-Pro-B Natriuret Pep 36161 pg/mL (<125) H 10/09/20 11:36 Total Protein 5.9 g/dL (6.3-8.2) L 10/09/20 11:36 Albumin 3.3 g/dL (3.5-5.0) L 10/09/20 11:36 TSH 0.33 uIU/mL (0.47-4.68) L 10/10/20 04:40 Free T4 0.96 ng/dL (0.78-2.19) 10/10/20 04:40 Free T3 pg/mL 3.09 pg/mL (2.77-5.27) 10/10/20 04:40 10/09/20 10/09/20 10/09/20 11:36 11:36 14:45 CK-MB (CK-2) 3.29 Troponin I 0.040 0.035 NT-Pro-B Natriuret Pep [id number] H 10/09/20 21:16 CK-MB (CK-2) Troponin I 0.021 NT-Pro-B Natriuret Pep Impressions: Venous Doppler Study 10/09/20 00:00 IMPRESSION: No DVT in the left upper extremity. Chest X-Ray 10/09/20 11:33 IMPRESSION: NO ACUTE RADIOGRAPHIC FINDING IN THE CHEST. Shoulder X-Ray 10/10/20 00:00 IMPRESSION: Mild degenerative changes. No acute findings. Plan Time Spent: Greater than 30 Minutes Stroke Is this a Stroke Patient?: No Acute Heart Failure Is this a Heart Failure Patient?: Yes Documentation of LVEF assessment?: Yes LVEF: LVEF Less Than or Equal to 35% Anticoagulant Therapy: N/A Discharged on Evidence-Based Beta Blockers: Yes Discharged on ARNI?: No-Document Contraindications Reason(s) not discharged on ARNI: ACEI use within the prior 36 hours Discharged on ARB?: No-document contraindications Reason(s) not Discharged on ARB: [place] Discharged on ACEI?: Yes For LVEF <35%, discharged on Aldosterone Antagonist?: Yes Reason(s) not discharged on Aldosterone Antagonist: Other Aldosterone Antagonist Reason - Other: not optimized on other heart failure meds Follow-up Appointment scheduled within 7 days?: Yes
[2020-10-10] MEDS ORDERED: INFLUENZA QUAD (6MOS+) 2020-21 VAC 0.5 ML SYR IM ONE (17:30)
[2020-10-11] MEDS ORDERED: INFLUENZA QUAD (6MOS+) 2020-21 VAC 0.5 ML SYR IM ONE (08:00)
--- NOTE | 2020-10-20 14:57 | XCELERA REPORT ---
[address] [address] Transthoracic Echocardiogram Report Name: BRADLY MATHEW Age: 65 yrs Gender: Female : 1955 Patient Status: Inpatient Patient Location: [address] [place], [place] [address] Study Date: 10/10/2020 02:17 PM History: CHF Height: 60 in Weight: 143 lb BSA: 1.6 m2 Procedure: A complete two-dimensional transthoracic echocardiogram was performed (2D, M-mode, spectral and color flow Doppler). The study was technically difficult with many images being suboptimal in quality. Reason For Study: chf Previous Evaluation: No previous studies were available. History: CHF. Ordering Physician: SHA DUBOSE Performed By: Soila Rendon Interpretation Summary Left ventricular systolic function is moderate to severely reduced. The Ejection Fraction estimate is 20-25% The right ventricular systolic function is normal. There is a mild amount of mitral regurgitation There is no aortic valve stenosis There is mild to moderate pulmonary hypertension by echo There is a trace amount of tricuspid regurgitation There is no pericardial effusion. MMode/2D Measurements & Calculations RVDd: 2.6 cm LVIDd: 5.9 cm FS: 10.9 % Ao root diam: IVSd: 1.2 cm LVIDs: 5.3 cm EDV(Teich): 2.4 cm LVPWd: 1.2 cm 173.5 ml Ao root area: ESV(Teich): 4.6 cm2 133.0 ml LA dimension: EF(Teich): 23.3 % 4.5 cm LVLd ap4: 8.6 cm SV(MOD-sp4): 31.0 ml EDV(MOD-sp4): 118.0 ml LVLs ap4: 8.1 cm ESV(MOD-sp4): 87.0 ml EF(MOD-sp4): 26.3 % Doppler Measurements & Calculations MV E max lora: MV P1/2t max lora: Ao V2 max: LV V1 max P.2 cm/sec 84.2 cm/sec 122.2 cm/sec 3.9 mmHg MV A max lora: MV P1/2t: 93.1 msec Ao max P.0 mmHg LV V1 max: 103.2 cm/sec MVA(P1/2t): 2.4 cm2 98.2 cm/sec MV E/A: 0.61 MV dec slope: 264.8 cm/sec2 MV dec time: 0.42 sec PA V2 max: TR max lora: MV P1/2t-pr_phl: 135.7 cm/sec 214.5 cm/sec 93.1 msec PA max P.4 mmHg TR max P.4 mmHg Left Ventricle The left ventricle is mildly to moderately dilated. There is moderate concentric left ventricular hypertrophy. Left ventricular systolic function is moderate to severely reduced. The Ejection Fraction estimate is 20-25%. Doppler measurements suggest impaired left ventricular relaxation, which is associated with grade I/IV or mild diastolic dysfunction. There is moderate global hypokinesis of the left ventricle. Right Ventricle There is a pacemaker lead in the right ventricle. The right ventricle is not well visualized secondary to technical limitations. The right ventricular systolic function is normal. Atria The right atrium is normal. There is a catheter/pacemaker lead seen in the right atrium. The left atrium is mildly dilated. The interatrial septum is intact with no evidence for an atrial septal defect. Mitral Valve There is mild mitral leaflet calcification. There is no evidence of mitral valve prolapse. There is a mild amount of mitral regurgitation. Aortic Valve There is no aortic valve stenosis. No aortic regurgitation is present. Tricuspid Valve The tricuspid valve is not well visualized, but is grossly normal. There is a trace amount of tricuspid regurgitation. Right ventricular systolic pressure is at the upper limits of normal. There is mild to moderate pulmonary hypertension by echo. Pulmonic Valve The pulmonic valve is not well visualized. There is a trace or physiologic amount of pulmonic regurgitation. Great Vessels The inferior vena cava appeared normal and decreased < 50% with respiration (RAP 10-15 mmHg). Effusions There is no pericardial effusion. : SHA DUBOSE Anil
== END 2020-10-10 17:56 | disposition home or self-care (01) ==
LOC: ER 11:25 → EH 16:30 → EDBD 16:30 → 4N 22:09
PROVIDERS: ADMIT Internal Medicine; ATTEND Internal Medicine
DX: I11.0 Hypertensive heart disease with heart failure (principal); I50.22 Chronic systolic (congestive) heart failure; I25.10 Atherosclerotic heart disease of native coronary artery without angina pectoris; E03.9 Hypothyroidism, unspecified; J44.1 Chronic obstructive pulmonary disease with (acute) exacerbation; M79.602 Pain in left arm; R06.02 Shortness of breath; E78.5 Hyperlipidemia, unspecified; Z79.899 Other long term (current) drug therapy; Z95.810 Presence of automatic (implantable) cardiac defibrillator; I25.2 Old myocardial infarction; F17.200 Nicotine dependence, unspecified, uncomplicated; Z23 Encounter for immunization
CPT/HCPCS: 93005 ×2; 99285; 96374; 36415 ×2; 84439; 82553; 82550; 83735; 84443; 85025; 80048; 80053; 84484; 84481; 83880; 93306; 93971; 71045; 73030; 90686; 93010 ×2; 94640 ×2; G0378 ×3; G0008; A9270 ×18; J1200; J1940 ×2; J2930; J1885; J2765; J1650; J3490 ×2; 90471; J7512; J7613